=== PATIENT | male | born 1995 | race African-American/Black ===

== ENCOUNTER 2017-09-30 15:08 | Emergency (ER) | payer OTHER ==
[~2017-09-30] VITALS: Ht 170.2 cm; Wt 65.8 kg
[2017-09-30 15:08] VITALS: BP_SYST 151
[2017-09-30] MEDS ORDERED: NACL 0.9% 1,000 ML IV ONE ×2 (15:41→17:15)
[2017-09-30] MEDS ORDERED: MORPHINE 4 MG/ML INJ. SYRINGE IVP ONE ×3 (15:45→18:45)
[2017-09-30] MEDS ORDERED: ONDANSETRON HCL 4 MG/2 ML VIAL IVP ONE (15:45)
--- NOTE | 2017-09-30 16:12 | NUR ---
Pt to gown in bed 7. Dr. Anderson at bedside for examination.
--- NOTE | 2017-09-30 16:15 | NUR ---
Pt AAOx4 presents to ED c/o 7/10 L knee and lower L leg pain x 2 days; states it is a sickle cell crisis episode. Pt denies N/V/D. Pt breathing even and unlabored. No other injuries/complaints per pt/noted. Larry continue to monitor.
--- NOTE | 2017-09-30 16:30 | NUR ---
Medication administered. Pt tolerated well. No adverse reactions noted.
[2017-09-30 16:31] LABS: HEMATOCRIT 37.3 % (36-54); HEMOGLOBIN 12.4 g/dL (14.0-18.0); MEAN CORPUSCULAR HEMOGLOBIN 27 pg (27-31); MEAN CORPUSCULAR HGB CONC 33 % (32-36); MEAN CORPUSCULAR VOLUME 82 fL (79.0-98.0); PLATELET COUNT (AUTO) 340 K/uL (130-430); RED BLOOD CELL COUNT(AUTO) 4.54 MIL/uL (4.2-6.2); RED CELL DISTRIBUTION WIDTH 22.6 % (9.0-15.0); WHITE BLOOD COUNT (AUTO) 16.4 K/uL (4.8-10.8)
[2017-09-30 16:43] LABS: CALCIUM 9.3 mg/dL (8.4-11.0); CREATININE 0.75 mg/dL (0.55-1.30); POTASSIUM 3.1 mmol/L (3.5-5.1)
[2017-09-30 16:48] LABS: ALBUMIN 4.2 g/dL (3.4-4.8); TOTAL BILIRUBIN 1.1 mg/dL (0.0-1.0)
[2017-09-30 17:12] LABS: INR 1.1 (0.80-1.20); PROTHROMBIN TIME 11.4 SECS (9.5-12.5)
[2017-09-30 17:17] LABS: BASOPHILS % (MANUAL) 0 % (0-2); EOSINOPHILS % (MANUAL) 0 % (0-7); MONOCYTES % (MANUAL) 7 % (0-11)
[2017-09-30 17:18] LABS: ATYPICAL LYMPHOCYTES % 3 % (0-0); LYMPHOCYTES % (MANUAL) 20 % (20-46)
--- NOTE | 2017-09-30 17:35 | NUR ---
Pt ambulated to bathroom. Urine sample provided. Pt states pain is increased to 6/10. Morphine and fluids adminsitered. Pt tolerated well. No adverse reactions noted.
[2017-09-30 17:55] LABS: BILIRUBIN,URINE NEGATIVE (NEGATIVE); BLOOD, URINE NEGATIVE (NEGATIVE); CLARITY/URINE CLEAR (CLEAR); COLOR,URINE YELLOW (YELLOW); GLUCOSE,URINE NEGATIVE (NEGATIVE); KETONES,URINE TRACE (NEGATIVE); LEUKOCYTE ESTERASE ,URINE NEGATIVE (NEGATIVE); NITRITE, URINE NEGATIVE (NEGATIVE); PROTEIN URINE NEGATIVE (NEGATIVE); UROBILINOGEN,URINE 0.2 (0.2-1.0)
--- NOTE | 2017-09-30 18:00 | NUR ---
Pt resting comfortably in bed with no signs of distress.
--- NOTE | 2017-09-30 18:53 | NUR ---
Medication adminsiterd. Pt tolerated well. No adverse reactions noted.
--- NOTE | 2017-09-30 20:21 | NUR ---
Patient given written and verbal discharge instructions and verbalizes understanding. ER MD Guardado discussed with patient the results and treatment provided. Patient in stable condition. ID arm band removed. IV catheter removed intact and dressing applied, no active bleeding. Rx of Tylenol with Codeine, Motrin, Folic Acid given. Patient educated on pain management and to follow up with PMD. Pain Scale 0.Opportunity for questions provided and answered. Medication side effect fact sheet provided.
[2017-09-30 20:47] VITALS: BP_SYST 138
[2017-10-01 01:31] LABS: RETICULOCYTE COUNT 4.5 % (0.5-1.5)
== END 2017-09-30 20:47 | disposition home or self-care (01) ==
LOC: SED 15:08
DX: G89.29 Other chronic pain (principal); M79.605 Pain in left leg; D57.00 Hb-SS disease with crisis, unspecified
CPT/HCPCS: 36415; 71045; 80053; 81003; 82150; 82550; 83690; 84484; 85007; 85027; 85044; 85610; 85730; 93005; 96361; 96374; 96375; 96376; 99285; J2270; J2405; J7030